=== PATIENT | female | born 1945 | race Caucasian/White ===

== ENCOUNTER 2016-05-03 23:55 | Emergency (ER) | payer MEDICARE, OTHER ==
[2016-05-03 21:42] LABS: INTERNATIONAL NORMAL RATI 1.1 UNITS (-); PARTIAL THROMBO TIME 27.8 SEC (22.5-37.2); PROTIME (NOT ORD) 13.9 SEC (12.0-14.5)
[2016-05-03 21:43] LABS: BASOPHILS 0.7 %; BASOPHILS ABSOLUTE 0.07 10/3/uL (0.0-0.16); EOSINOPHILS 1.8 %; EOSINOPHILS ABSOLUTE 0.19 10/3/uL (0.0-0.53); ER CBC TAT 0 Hrs 16 Mins; HEMATOCRIT 45.2 % (36.0-48.0); IMMATURE GRANULOCYTES 0.3 %; IMMATURE GRANULOCYTES ABSOLUTE 0.03 10/3/uL (0.0-0.11); LYMPHOCYTES 41.2 %; LYMPHOCYTES ABSOLUTE 4.38 10/3/uL (0.67-4.30); MANUAL DIFF NO %; MEAN CORPUS HGB CONC 35.4 g/dL (32.0-36.0); MEAN CORPUSCULAR HEMOGLOB 32.5 pg (26.0-34.0); MEAN CORPUSCULAR VOLUME 91.9 fL (80-100); MEAN PLATELET VOLUME 11.4 fL (9.2-13.0); MONOCYTES 6.2 %; MONOCYTES ABSOLUTE 0.66 10/3/uL (0.21-1.20); NEUTROPHILS 49.8 %; NEUTROPHILS ABSOLUTE 5.29 10/3/uL (2.02-8.40); PLATELET COUNT 144 10/3/uL (150-400); RBC DISTRIBUTION WIDTH 12.8 % (12.0-16.0); RED CELL COUNT 4.92 10/6/uL (4.0-5.6); WHITE BLOOD CELLS 10.6 10/3/uL (4.5-10.5)
[2016-05-03 21:48] LABS: BUN (BLOOD UREA NITROGEN) 15 MG/DL (6-23); CHEST PAIN PROFILE TAT 0 Hrs 21 Mins; CHLORIDE, SERUM 109 MMOL/L (96-112); CO2 (CARBON DIOXIDE) 25 MMOL/L (24-34); CREATININE 1.09 MG/DL (0.55-1.02); GFR AFRICAN AMERICAN 60 ML/MIN (>=60); GFR NON AFRICAN AMERICAN 52 ML/MIN (>=60); POTASSIUM, SERUM 3.8 MMOL/L (3.5-5.3); SODIUM, SERUM 144 MMOL/L (135-148); TROPONIN I 0.02 NG/ML (<0.05)
[2016-05-03 21:49] LABS: GLUCOSE, SERUM 191 MG/DL (60-99)
[~2016-05-03 23:55] MED LIST: ACTOS30 PO; ALBUTEROL INH; ALBUTEROL5 INH; AMARYL4 PO; ASA5GR PO; ASAB PO; ATACAND16 PO; ATACAND32 MG PO; ATROVENT HFA17 MCG INH; BEN25 PO; CAT1 PO; CELEXA20 PO; CREON; CREON DR 36,001 EACH PO; CREON12000 UNT PO; CRESTOR10 PO; CRESTOR40 MG PO; DUONEB INH; FISH-EPA1000 MG PO; FLONASE NAS; GLUCOPHAGE1000 MG PO; GLUCPH PO; HALF81 PO; HCTZ25B PO; HUMI PO; HYDROCHLOROT25 MG PO; KLONO5 PO; KLOR-CON 1010 MEQ PO; L20 PO; LEVAQUIN750 MG PO; LOP100 PO; LOP25 PO; LOP50 PO; METOPROLOL; NASALCROM5.2 MG/ACT; NEXIUM40 PO; NORCO1 TA1 PO; OTC SLEEP AID; OXECTA7.5 MG PO; OXYCOD PO; P20 PO; PCET PO; PERCOCET1 TA2 PO; PERCOCET1 TA4 PO; PLAVIX PO; PR25 PO; PROVENTSOL INH; PROVHFA INH; REG PO; REG5 PO; SERTRALINE 20 MG/ML; SPIRIVA INH; SYMBICORT 160/41 INH INH; TESS PO; TOPXL25 PO; TOUJEO; TOUJEO SC; TUDORZA PRESS400 MCG INH; TYLENOL PM PO; VENTOLIN HFA INH; X5 PO; Z-PAK PO; ZOFRAN4 PO; ZOFRAN8 PO; ZOL50 PO; ZOLOFT25 MG PO; [UNRECOGNIZED DRUG - OTHER] PO; [UNRECOGNIZED DRUG - REMARK]; [UNRECOGNIZED DRUG - REMARK]; [UNRECOGNIZED DRUG - REMARK]; [UNRECOGNIZED DRUG - REMARK]; [UNRECOGNIZED DRUG - REMARK]; [UNRECOGNIZED DRUG - REMARK]
== END 2016-05-04 03:24 | disposition home or self-care (01) ==
LOC: ER 23:55
PROVIDERS: Emergency Medicine
DX: I10 Essential (primary) hypertension (principal); J44.9 Chronic obstructive pulmonary disease, unspecified; E10.9 Type 1 diabetes mellitus without complications; F17.200 Nicotine dependence, unspecified, uncomplicated; Z88.5 Allergy status to narcotic agent; Z79.82 Long term (current) use of aspirin; Z79.84 Long term (current) use of oral hypoglycemic drugs; Z79.899 Other long term (current) drug therapy
CPT/HCPCS: 71020; 80048; 83735; 84484; 85025; 85610; 85730; 93005; 99284

== ENCOUNTER 2016-05-16 02:00 | Emergency (ER) | payer MEDICARE, OTHER ==
[2016-05-16 01:48] LABS: BASOPHILS 0.5 %; BASOPHILS ABSOLUTE 0.07 10/3/uL (0.0-0.16); EOSINOPHILS 1.4 %; EOSINOPHILS ABSOLUTE 0.21 10/3/uL (0.0-0.53); ER CBC TAT 0 Hrs 05 Mins; HEMATOCRIT 44.8 % (36.0-48.0); HEMOGLOBIN 16.3 g/dL (12.0-16.0); IMMATURE GRANULOCYTES 0.4 %; IMMATURE GRANULOCYTES ABSOLUTE 0.06 10/3/uL (0.0-0.11); LYMPHOCYTES 20.8 %; LYMPHOCYTES ABSOLUTE 3.04 10/3/uL (0.67-4.30); MANUAL DIFF NO %; MEAN CORPUS HGB CONC 36.4 g/dL (32.0-36.0); MEAN CORPUSCULAR HEMOGLOB 33.8 pg (26.0-34.0); MEAN CORPUSCULAR VOLUME 92.9 fL (80-100); MEAN PLATELET VOLUME 11.5 fL (9.2-13.0); MONOCYTES ABSOLUTE 1.02 10/3/uL (0.21-1.20); NEUTROPHILS 69.9 %; NEUTROPHILS ABSOLUTE 10.25 10/3/uL (2.02-8.40); PLATELET COUNT 133 10/3/uL (150-400); RBC DISTRIBUTION WIDTH 12.6 % (12.0-16.0); RED CELL COUNT 4.82 10/6/uL (4.0-5.6); WHITE BLOOD CELLS 14.7 10/3/uL (4.5-10.5)
[2016-05-16 01:54] LABS: INTERNATIONAL NORMAL RATI 1.1 UNITS (-); PARTIAL THROMBO TIME 23.4 SEC (22.5-37.2); PROTIME (NOT ORD) 13.7 SEC (12.0-14.5)
[2016-05-16 02:04] LABS: BUN (BLOOD UREA NITROGEN) 21 MG/DL (6-23); CALCIUM, SERUM 8.6 MG/DL (8.5-10.4); CHEST PAIN PROFILE TAT 0 Hrs 21 Mins; CHLORIDE, SERUM 111 MMOL/L (96-112); CO2 (CARBON DIOXIDE) 24 MMOL/L (24-34); CREATININE 1.29 MG/DL (0.55-1.02); GFR AFRICAN AMERICAN 49 ML/MIN (>=60); GFR NON AFRICAN AMERICAN 42 ML/MIN (>=60); GLUCOSE, SERUM 181 MG/DL (60-99); POTASSIUM, SERUM 3.4 MMOL/L (3.5-5.3); SODIUM, SERUM 146 MMOL/L (135-148); TROPONIN I 0.03 NG/ML (<0.05)
== END 2016-05-16 02:54 | disposition home or self-care (01) ==
LOC: ER 02:00
PROVIDERS: Nurse Practitioner Acute Care
DX: I11.0 Hypertensive heart disease with heart failure (principal); Z91.14 Patient's other noncompliance with medication regimen; J44.9 Chronic obstructive pulmonary disease, unspecified; I50.9 Heart failure, unspecified; K21.9 Gastro-esophageal reflux disease without esophagitis; F32.9 Major depressive disorder, single episode, unspecified; F41.9 Anxiety disorder, unspecified; E11.9 Type 2 diabetes mellitus without complications; F17.200 Nicotine dependence, unspecified, uncomplicated; Z88.5 Allergy status to narcotic agent; Z79.82 Long term (current) use of aspirin; Z79.899 Other long term (current) drug therapy
CPT/HCPCS: 70450; 71010; 80048; 83735; 84484; 85025; 85610; 85730; 99285; A9270-GY